=== PATIENT | female | born 1980 | race Caucasian/White ===

== ENCOUNTER 2018-04-08 06:39 | Day surgery (SDC) | payer BC ==
[~2018-04-08 06:39] MED LIST: Lidocaine 1%/Sod Bicarbonate in NS 8.4% 1 ML Syringe IDERM PRN; Sodium Chloride 0.9% 10 ML Syringe FLUSH PRN
--- NOTE | 2018-04-08 07:40 | PCM.PREANE ---
Preanesthetic Assessment - Procedure Proposed Procedure: tvh with bs - Anesthesia/Transfusion/Family Hx Anesthesia History: Prior Anesthesia Without Reaction Family History of Anesthesia Reaction: No Transfusion History: No Prior Transfusion(s) - Review of Systems General: No Symptoms Pulmonary: No Symptoms Cardiovascular: No Symptoms Gastrointestinal: Constipation Neurological: No Symptoms Other: Reports: Thyroid Problems (cysst on thyroid) - Physical Assessment NPO Status Date: 04/07/18 NPO Status Time: 21:00 Pulse: 79 O2 Sat by Pulse Oximetry: 99 Respiratory Rate: 16 Blood Pressure: 128/63 Temperature: 97.6 F Height: 5 ft 8 in Weight: 93.8 kg ASA Class: 2 Mental Status: Alert & Oriented x3 Airway Class: Mallampati = 1 Dentition: Reports: Normal Dentition Thyro-Mental Finger Breadths: 3 Mouth Opening Finger Breadths: 3 ROM/Head Extension: Full Lungs: Clear to Auscultation, Normal Respiratory Effort Cardiovascular: Regular Rate, Regular Rhythm - Lab Values: Laboratory Last Values WBC 8.42 K/mm3 (3.98-10.04) 04/07/18 17:19 RBC 4.56 M/mm3 (3.98-5.22) 04/07/18 17:19 Hgb 14.1 gm/L (11.2-15.7) 04/07/18 17:19 Hct 43.0 % (34.1-44.9) 04/07/18 17:19 MCV 94.3 fl (79.4-94.8) 04/07/18 17:19 MCH 30.9 pg (25.6-32.2) 04/07/18 17:19 MCHC 32.8 g/dl (32.2-35.5) 04/07/18 17:19 RDW Std Deviation 44.8 fL (36.4-46.3) 04/07/18 17:19 Plt Count 383 K/mm3 (182-369) H 04/07/18 17:19 MPV 10.3 fl (9.4-12.3) 04/07/18 17:19 Neut % (Auto) 62.0 % (34.0-71.1) 04/07/18 17:19 Lymph % (Auto) 28.4 % (19.3-51.7) 04/07/18 17:19 [place] % (Auto) 8.2 % (4.7-12.5) 04/07/18 17:19 Eos % (Auto) 1.1 (0.7-5.8) 04/07/18 17:19 Baso % (Auto) 0.2 % (0.1-1.2) 04/07/18 17:19 Neut # (Auto) 5.22 K/mm3 (1.56-6.13) 04/07/18 17:19 Lymph # (Auto) 2.39 K/mm3 (1.18-3.74) 04/07/18 17:19 [place] # (Auto) 0.69 K/mm3 (0.24-0.36) H 04/07/18 17:19 Eos # (Auto) 0.09 K/mm3 (0.04-0.36) 04/07/18 17:19 Baso # (Auto) 0.02 K/mm3 (0.01-0.08) 04/07/18 17:19 Creatinine 0.6 mg/dL (0.55-1.02) 04/07/18 17:19 Est Cr Clr Drug Dosing TNP 04/07/18 17:19 Estimated GFR (MDRD) > 60 mL/min (>60) 04/07/18 17:19 HCG, Qual Negative (NEGATIVE) 04/07/18 17:19 Urine Color Yellow (Yellow) 04/07/18 17:19 Urine Appearance Clear (Clear) 04/07/18 17:19 Urine pH 6.5 (5.0-8.0) 04/07/18 17:19 Ur Specific [place] 1.010 (1.005-1.030) 04/07/18 17:19 Urine Protein Negative (Negative) 04/07/18 17:19 Urine Glucose (UA) Negative (Negative) 04/07/18 17:19 Urine Ketones Negative (Negative) 04/07/18 17:19 Urine Occult Blood Negative (Negative) 04/07/18 17: Urine Nitrite Negative (Negative) 04/07/18 17:19 Urine Bilirubin Negative (Negative) 04/07/18 17:19 Urine Urobilinogen 0.2 (0.2-1.0) 04/07/18 17:19 Ur Leukocyte Esterase Negative (Negative) 04/07/18 17:19 Blood Type A POSITIVE 04/07/18 17:19 - Allergies Allergies/Adverse Reactions: Allergies Allergy/AdvReac Type Severity Reaction Status Date / Time Penicillins Allergy Rash Verified 07/14/16 10:38 - Acknowledgements Anesthesia Type Planned: General Anesthesia Pt an Appropriate Candidate for the Planned Anesthesia: Yes Alternatives and Risks of Anesthesia Discussed w Pt/Guardian: Yes Pt/Guardian Understands and Agrees with Anesthesia Plan: Yes PreAnesthesia Questionnaire HEENT History: Reports: Impaired Vision Cardiovascular History: Reports: None Respiratory History: Reports: None Gastrointestinal History: Reports: GERD (occasional) 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: Psychiatric History: Reports: Anxiety, Depression - Past Surgical History GI Surgical History: Reports: Appendectomy Female Surgical History: Reports: Breast Biopsy, D&C - SUBSTANCE USE Smoking Status *Q: Never Smoker Tobacco Use Within Last Twelve Months: No Second Hand Smoke Exposure: No Days Per Week of Alcohol Use: 0 Recreational Drug Use History: No - HOME MEDS Home Medications: Home Meds Sertraline [Zoloft] 50 mg PO DAILY 07/14/16 [History] - CURRENT (IN HOUSE) MEDS Current Meds: Current Medications Lactated Ringer's (Ringers, Lactated) 1,000 mls @ 125 mls/hr IV ASDIRECTED ALEXIS Stop: 04/08/18 23:00 Lidocaine/Sodium Bicarbonate (Buffered Lidocaine 1% In Ns 8.4%) 0.25 ml IDERM ONETIME PRN PRN Reason: Prior to IV Start Stop: 04/08/18 18:00 Sodium Chloride (Saline Flush) 10 ml FLUSH ASDIRECTED PRN PRN Reason: Keep Vein Open Stop: 04/08/18 18:00
[2018-04-08] MEDS: Lactated Ringers 1,000 ML IV SCH ×2 (07:45→10:34)
[2018-04-08] MEDS ORDERED: Lidocaine 1% 4 ML ONE (07:51)
[2018-04-08] MEDS ORDERED: Propofol 200 MG/20 ML SDV ONE (07:51)
[2018-04-08] MEDS ORDERED: Ondansetron 4 MG/2 ML SDV ONE (07:51)
[2018-04-08] MEDS ORDERED: Midazolam 1 MG/ML 2 ML SDV ONE (07:51)
[2018-04-08] MEDS ORDERED: fentaNYL 250 MCG/5 ML SDV ONE (07:52)
[2018-04-08] MEDS ORDERED: ceFAZolin 1 GM Vial ONE (07:54)
[2018-04-08] MEDS ORDERED: Sodium Chloride 0.9% 50 ML SDV ONE (08:13)
[2018-04-08] MEDS ORDERED: Lidocaine 1% with EPINEPHrine 1:100,000 20 ML MDV ONE (08:13)
[2018-04-08] MEDS ORDERED: Rocuronium 50 MG/5 ML Vial ONE (08:53)
[2018-04-08] MEDS ORDERED: HYDROmorphone 0.5 MG/0.5 ML Syringe ONE ×2 (09:07)
[2018-04-08] MEDS ORDERED: Dexamethasone 4 MG/ML 5 ML MDV ONE (09:09)
[2018-04-08] MEDS ORDERED: Ketorolac 30 MG/ML SDV ONE (09:37)
[2018-04-08] MEDS ORDERED: Ondansetron 4 MG/2 ML SDV IVPUSH PRN (09:48)
[2018-04-08] MEDS ORDERED: Acetaminophen/oxyCODONE 325-5 MG Tab PO PRN (09:48)
[2018-04-08] MEDS ORDERED: fentaNYL 100 MCG/2 ML SDV ONE (09:51)
--- NOTE | 2018-04-08 09:56 | PCM.OPNOTE ---
- General Post-Op/Procedure Note Date of Surgery/Procedure: 04/08/18 Operative Procedure(s): Total vaginal hysterectomy with bilateral salpingectomy Findings: Normal uterus, normal appearance for fallopian tubes. Ovaries functional in appearance. Pre Op Diagnosis: Menorrhagia Post-Op Diagnosis: Same Primary Surgeon: Jovon Borrego Secondary Surgeon: Donell Valenzuela Anesthesia Provider: Sabas Delgadillo Kiln Door Repairer: Nuris Irwin Reason Kiln Door Repairer Was Necessary: Retraction, assistance, patient safety, quantity of care. Role of Kiln Door Repairer: Same Fluid Replacement, Intraop: 1,700 EBL in mLs: 200 Complications: None Condition: Good Free Text/Narrative:: Surgery duration: 26 minutes Procedure: The patient was placed in supine position on the operating table. General endotracheal anesthesia was accomplished. After positioning, and adequate prep and drape, the procedure was then performed. Sterile speculum was placed in the vagina and cervix was visualized. Cervix was injected with lidocaine quarter percent with [id number] mL used. A full circumference incision was made in the cervical epithelium. The bladder was pushed well back off cervix. Posterior cul-de-sac was then entered sharply without problems. Left uterosacral was crossclamped with a Enseal vessel closure system. The left uterosacral and then the right uterosacral ligament pedicles were developed using the Enseal system. The anterior cul-de-sac was then entered without problems and the uterine vasculature, cardinal ligament and broad ligament then developed using Enseal vessel closure system. The uterus was inverted at this time and upper broad ligament fallopian tube pedicles were crossclamped with Reina clamps. Specimen was totally removed. Both these pedicles were then secured with a Reina stitch of #1 Vicryl. Left and right fallopian tube was normal in appearance.. Using Enseal vessel closure system each of the tubes was then removed and sent with the specimen. The Enseal vessel closure system was used to remove both ovaries. The patient was found to be hemostatically intact at this time. Vaginal cuff was sutured for hemostatic reasons with a running locked suture of 0 Monocryl from the 2 o' clock position to the 10 o'clock position posteriorly. Vaginal cuff was then closed from right to left side with a running locked suture of 0 Monocryl. Patient was returned to supine position and awakened from general endotracheal anesthesia. She tolerated the procedure was then left the operating room in satisfactory condition.
[2018-04-08] MEDS ORDERED: HYDROmorphone 0.5 MG/0.5 ML Syringe IVPUSH PRN (10:00)
--- NOTE | 2018-04-08 10:02 | PCM.POSTAN ---
POST ANESTHESIA ASSESSMENT - MENTAL STATUS Mental Status: Alert, Oriented - VITAL SIGNS Pulse Rate: 82 SaO2: 94 Resp Rate: 6 Blood Pressure: 119/50 Temperature: 36.1 C - CARDIOVASCULAR CV Status: Pulse Rate WNL, Blood Pressure Stable - GASTROINTESTINAL GI Status: No Symptoms - PAIN Pain Score: 1 - POST OP HYDRATION Hydration Status: Adequate & Stable - OBSERVATIONS Free Text/Narrative:: no anesthesia complications noted
[2018-04-08] MEDS: fentaNYL 100 MCG/2 ML SDV IVPUSH PRN ×3 (10:10→11:15)
[2018-04-08 13:48] VITALS: BP 126/86
== END 2018-04-08 13:45 | disposition home or self-care (01) ==
LOC: JD.SDS 06:39
PROVIDERS: ATTEND Obstetrics & Gynecology
DX: D25.9 Leiomyoma of uterus, unspecified (principal); N83.8 Other noninflammatory disorders of ovary, fallopian tube and broad ligament; J30.9 Allergic rhinitis, unspecified; E04.1 Nontoxic single thyroid nodule; F41.9 Anxiety disorder, unspecified; F32.9 Major depressive disorder, single episode, unspecified; Z88.0 Allergy status to penicillin; Z79.899 Other long term (current) drug therapy
CPT/HCPCS: 36415; 58260; 81003; 82565; 84703; 85025; 86900; 86901; A9270; J0690; J1100; J1170; J1885; J2250; J2405; J2704; J3010; J7120; 00944; J2001

== ENCOUNTER 2018-04-10 20:48 | Emergency (ER) | payer BC ==
[2018-04-10 21:00] VITALS: BP 150/89
--- NOTE | 2018-04-10 23:20 | EDM.PDOC ---
ED HPI GENERAL MEDICAL PROBLEM - General Chief Complaint: Gastrointestinal Problem Stated Complaint: BOWEL PROBLEM Time Seen by Provider: 04/10/18 23:14 Source of Information: Reports: Patient, Family () History Limitations: Reports: No Limitations - History of Present Illness INITIAL COMMENTS - FREE TEXT/NARRATIVE: The patient states that she underwent a total vaginal hysterectomy with bilateral salpingectomy per Dr. Borrego 2 days ago, 04/08/2018. She states that she was prescribed Percocet for pain relief. She now presents, stating that she has not had a bowel movement since prior to surgery. She states that she feels bloated, with abdominal cramping and rectal urgency. She has taken a stool softener, a Fleet enema, and a glycerin suppository, without relief. The patient's PCP is Tracie Marte. 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: Psychiatric History: Reports: Anxiety, Depression Endocrine/Metabolic History: Reports: Obesity/BMI 30+ - Past Surgical History HEENT Surgical History: Reports: Eye Surgery (bilateral eyelid lift 2015), Oral Surgery (wisdom teeth extraction) GI Surgical History: Reports: Appendectomy (5 years old) Female Surgical History: Reports: Hysterectomy (04/08/2018), Other (See Below) (Bilateral salpingectomy 04/08/2018) Oncologic Surgical History: Reports: Lumpectomy (right, 2005) Social & Family History - Family History Cardiac: Reports: Hypertension Endocrine/Metabolic: Reports: Diabetes, type II Oncologic: Reports: Skin - Tobacco Use Smoking Status *Q: Never Smoker - Caffeine Use Caffeine Use: Reports: None Other Caffeine Use: 3 - Alcohol Use Alcohol Use History: Yes Alcohol Use Frequency: Socially - Recreational Drug Use Recreational Drug Use: No - Living Situation & Occupation Living situation: Reports: , with Spouse, with Family (Daughter) Occupation: Employed (Works from home) ED ROS GENERAL - Review of Systems Review Of Systems: ROS reveals no pertinent complaints other than HPI. ED EXAM, GI/ABD - Physical Exam Exam: See Below Exam Limited By: No Limitations General Appearance: Alert, WD/WN, No Apparent Distress Eyes: Bilateral: Normal Appearance, EOMI Ears: Normal External Exam, Hearing Grossly Normal Nose: Normal Inspection, No Blood Throat/Mouth: Normal Inspection, Normal Lips, Normal Voice, No Airway Compromise Head: Atraumatic, Normocephalic Neck: Normal Inspection, Full Range of Motion Respiratory/Chest: No Respiratory Distress, Lungs Clear, Normal Breath Sounds, No Accessory Muscle Use Cardiovascular: Normal Peripheral Pulses, Regular Rate, Rhythm, No Gallop, No JVD, No Murmur, No Rub GI/Abdominal Exam: Normal Bowel Sounds, Soft, No Organomegaly, No Distention, No Abnormal Bruit, No Mass, Tender (Appropriate jen-incisional tenderness), Other (Obese) (Female) Exam: Deferred Rectal (Female) Exam: Deferred Back Exam: Normal Inspection, Full Range of Motion, NT Extremities: Normal Inspection, Normal Range of Motion, No Pedal Edema, Normal Capillary Refill Neurological: Alert, Oriented, Normal Cognition, No Motor/Sensory Deficits Psychiatric: Normal Affect Skin Exam: Warm, Dry, Intact, Normal Color, No Rash Course - Vital Signs Last Recorded V/S: Last Vital Signs Temp 37.0 C 04/10/18 20:55 Pulse 81 04/10/18 20:55 Resp 18 04/10/18 20:55 BP 150/89 H 04/10/18 20:55 Pulse Ox 99 04/10/18 20:55 - Re-Assessments/Exams Free Text/Narrative Re-Assessment/Exam: 04/10/18 23:19 Upright and supine abdominal radiographs appear to demonstrate a considerable amount of stool in the right and transverse colon, with a modest amount in the descending colon. No other abnormalities seen. There is a nonspecific small bowel gas pattern. Formal read per the Radiologist pending. 04/10/18 23:29 I have ordered a mineral oil enemas, to be repeated until the patient has reasonable relief. 04/11/18 00:37 Notified by Debi EVANS that the patient has received 2 mineral oil enemas. She had pretty good stool output with the first, not so much with the second one, but she now feels comfortable enough to go home. She feels that she can continue the mineral oil enemas at home. Departure - Departure Time of Disposition: 00:38 Disposition: Home, Self-Care 01 Condition: Good Clinical Impression: Constipation due to opioid therapy - Discharge Information *PRESCRIPTION DRUG MONITORING PROGRAM REVIEWED*: Not Applicable *COPY OF PRESCRIPTION DRUG MONITORING REPORT IN PATIENT RIVERA: Not Applicable Instructions: Constipation, Adult Referrals: Tracie Marte PA [Primary Care Provider] - Jovon Borrego MD [Physician] - Forms: ED Department Discharge Additional Instructions: You were seen in the emergency room for constipation following a hysterectomy on 04/08/2018, with postoperative treatment with Percocet. Workup in the ER included x-rays of your abdomen, which confirmed constipation in your ascending, transverse, and, to a lesser degree, your descending colon. You received two mineral oil enemas in the ER, with some stool output. Going forward, we recommend that you start using a bulk fiber laxative, such as Metamucil or MiraLAX, with plenty of water. You may also continue to give yourself mineral oil enemas, as needed. Follow-up with your Director [employer], Dr. Borrego, as needed. If any other problems, please do not hesitate to return to the ER.
--- NOTE | 2018-04-11 07:41 | CR ---
Abdomen: Supine and upright views of the abdomen were obtained. Comparison: No previous study. Bowel gas pattern appears normal. No abnormal calcifications or soft tissue abnormality is seen. Bony structures are unremarkable. No free air is seen. Impression: 1. No abnormality is appreciated on two-view abdominal x-ray. Diagnostic code #1
== END 2018-04-11 00:47 | disposition home or self-care (01) ==
LOC: JD.ED 20:48
DX: K59.03 Drug induced constipation (principal); T40.2X5A Adverse effect of other opioids, initial encounter; E66.9 Obesity, unspecified; Z88.0 Allergy status to penicillin; Z79.899 Other long term (current) drug therapy; Z90.710 Acquired absence of both cervix and uterus
CPT/HCPCS: 74019; 74019-26; 99283

== ENCOUNTER 2018-11-03 11:28 | Emergency (ER) | payer BC ==
[2018-11-03 11:38] VITALS: BP 149/87
[2018-11-03] MEDS ORDERED: Sodium Chloride 0.9% 10 ML Syringe FLUSH PRN (11:38)
--- NOTE | 2018-11-03 11:44 | EDM.PDOC ---
<Chaya Lockett - Last Filed: 11/03/18 13:29> ED HPI GENERAL MEDICAL PROBLEM - General Chief Complaint: Chest Pain Stated Complaint: CHEST PAIN Time Seen by Provider: 11/03/18 11:32 Source of Information: Reports: Patient History Limitations: Reports: No Limitations - History of Present Illness INITIAL COMMENTS - FREE TEXT/NARRATIVE: 38 y/o female who has been otherwise healthy presents to ER with cc sudden onset of chest pain. She states she was working at home when she developed substernal chest pain. She reports the pain as a dull pressure that radiated to back of her chest and into her jaw. She reports taking Zoloft daily, no other health issues, no sudden cardiac arrest in her family. She denies nausea, vomiting, headache. She reports nothing made is better or worse. Onset: Today Onset Date: 11/03/18 Onset Time: 09:10 Duration: Intermittent Location: Reports: Chest Quality: Reports: Ache, Dull Severity: Mild Improves with: Reports: None Worsens with: Reports: None Associated Symptoms: Reports: Other (diffulty breath, "felt labored."). 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: Psychiatric History: Reports: Anxiety, Depression Endocrine/Metabolic History: Reports: Obesity/BMI 30+ - Past Surgical History HEENT Surgical History: Reports: Eye Surgery (bilateral eyelid lift 2015), Oral Surgery (wisdom teeth extraction) GI Surgical History: Reports: Appendectomy (5 years old) Female Surgical History: Reports: Hysterectomy (04/08/2018), Other (See Below) (Bilateral salpingectomy 04/08/2018) Oncologic Surgical History: Reports: Lumpectomy (right, 2006) Social & Family History - Family History Cardiac: Reports: Hypertension Endocrine/Metabolic: Reports: Diabetes, type II Oncologic: Reports: Skin - Caffeine Use Caffeine Use: Reports: None Other Caffeine Use: 3 - Living Situation & Occupation Living situation: Reports: , with Spouse, with Family (Daughter) Occupation: Employed (Works from home) ED ROS GENERAL - Review of Systems Review Of Systems: See Below Constitutional: Reports: No Symptoms HEENT: Reports: No Symptoms Respiratory: Reports: No Symptoms, Other (labored breathing) Cardiovascular: Reports: Chest Pain Endocrine: Reports: No Symptoms GI/Abdominal: Reports: No Symptoms : Reports: No Symptoms Musculoskeletal: Reports: No Symptoms Skin: Reports: No Symptoms Neurological: Reports: No Symptoms Psychiatric: Reports: Anxiety Hematologic/Lymphatic: Reports: No Symptoms Immunologic: Reports: No Symptoms ED EXAM, GENERAL - Physical Exam Exam: See Below Exam Limited By: No Limitations General Appearance: Alert, WD/WN, No Apparent Distress Neck: Normal Inspection, Supple, Non-Tender, Full Range of Motion Respiratory/Chest: No Respiratory Distress, Lungs Clear, Normal Breath Sounds, No Accessory Muscle Use, Chest Non-Tender Cardiovascular: Normal Peripheral Pulses, Regular Rate, Rhythm, No Edema, No Gallop, No JVD, No Murmur, No Rub GI/Abdominal: Normal Bowel Sounds, Soft, Non-Tender, No Organomegaly, No Distention, No Abnormal Bruit, No Mass, Pelvis Stable Back Exam: Normal Inspection, Full Range of Motion Extremities: Normal Inspection, Normal Range of Motion, Non-Tender, No Pedal Edema, Normal Capillary Refill Neurological: Alert, Oriented, CN II-XII Intact, Normal Cognition, Normal Gait, No Motor/Sensory Deficits Psychiatric: Normal Affect, Normal Mood Skin Exam: Warm, Dry, Intact, Normal Color, No Rash Lymphatic: No Adenopathy EKG INTERPRETATION EKG Date: 11/03/18 Time: 11:40 Rhythm: NSR Rate (Beats/Min): 68 EKG Interpretation Comments: T wave inversion in lead III and flattening AVF otherwise normal ECG Course - Vital Signs Last Recorded V/S: Last Vital Signs Temp 36.9 C 11/03/18 11:34 Pulse 84 11/03/18 11:34 Resp 16 11/03/18 11:34 BP 149/87 H 11/03/18 11:34 Pulse Ox 98 11/03/18 11:34 - Orders/Labs/Meds Orders: Active Orders 24 hr Category Date Time Status EKG Documentation Completion [RC] STAT Care 11/03/18 11:37 Active Sodium Chloride 0.9% [Saline Flush] Med 11/03/18 11:38 Active 10 ml FLUSH ASDIRECTED PRN Saline Lock Insert [OM.PC] Routine Oth 11/03/18 11:38 Ordered Medication Orders Sodium Chloride (Saline Flush) 10 ml FLUSH ASDIRECTED PRN PRN Reason: Keep Vein Open Last Admin: 11/03/18 11:59 Dose: 10 ml Labs: Laboratory Tests 11/03/18 11/03/18 11/03/18 Range/Units 11:55 11:55 11:55 WBC 6.71 (3.98-10.04) K/mm3 RBC 4.20 (3.98-5.22) M/mm3 Hgb 13.0 (11.2-15.7) gm/L Hct 39.4 (34.1-44.9) % MCV 93.8 (79.4-94.8) fl MCH 31.0 (25.6-32.2) pg MCHC 33.0 (32.2-35.5) g/dl RDW Std Deviation 46.1 (36.4-46.3) fL Plt Count 325 (182-369) K/mm3 MPV 9.9 (9.4-12.3) fl Neut % (Auto) 62.4 (34.0-71.1) % Lymph % (Auto) 27.9 (19.3-51.7) % [place] % (Auto) 7.7 (4.7-12.5) % Eos % (Auto) 1.3 (0.7-5.8) Baso % (Auto) 0.6 (0.1-1.2) % Neut # (Auto) 4.18 (1.56-6.13) K/mm3 Lymph # (Auto) 1.87 (1.18-3.74) K/mm3 [place] # (Auto) 0.52 H (0.24-0.36) K/mm3 Eos # (Auto) 0.09 (0.04-0.36) K/mm3 Baso # (Auto) 0.04 (0.01-0.08) K/mm3 D-Dimer, Quantitative 0.29 (0.19-0.50) mg/L Sodium 140 (136-145) mEq/L Potassium 3.7 (3.5-5.1) mEq/L Chloride 104 (98-107) mEq/L Carbon Dioxide 26 (21-32) mEq/L Anion Gap 13.7 (5-15) BUN 11 (7-18) mg/dL Creatinine 0.6 (0.55-1.02) mg/dL Est Cr Clr Drug Dosing 125.73 mL/min Estimated GFR (MDRD) > 60 (>60) mL/min BUN/Creatinine Ratio 18.3 H (14-18) Glucose 101 (74-106) mg/dL Calcium 9.0 (8.5-10.1) mg/dL Total Bilirubin 0.3 (0.2-1.0) mg/dL AST 18 (15-37) U/L ALT 20 (14-59) U/L Alkaline Phosphatase 70 (46-116) U/L Troponin I < 0.017 (0.00-0.056) ng/mL C-Reactive Protein < 0.2 (<1.0) mg/dL Total Protein 7.0 (6.4-8.2) g/dl Albumin 3.9 (3.4-5.0) g/dl Globulin 3.1 gm/dL Albumin/Globulin Ratio 1.3 (1-2) Lipase 76 (73-393) U/L Meds: Medications Generic Name Dose Route Start Last Admin Trade Name Freq PRN Reason Stop Dose Admin Sodium Chloride 10 ml 11/03/18 11:38 11/03/18 11:59 Saline Flush FLUSH 10 ml ASDIRECTED PRN Administration Keep Vein Open - Re-Assessments/Exams Free Text/Narrative Re-Assessment/Exam: 11/03/18 12:29 WBC 6.71 RBC 4.2 H7H 13.0/39.4 Na+ 140 K+ 3.7 chl 104 co2 26 bun 11 creatine 0.6 troponin 0.017 crp 0.2 Lipase 76 ast 18 alt 20. Her chest x-ray revealed no acute findings. 38 y/o female presents to ER with cc sudden onset chest pain this am. Her EKG revealed NSR, her labs were unremarkable. Her chest x-ray revealed no acute findings. I feel her chest pain could be due to stress or anxiety. GERD can not be excluded. I will discharge home with instructions to follow up with her PCP. I instructed her to return to the ER for any new or acute worsening symptoms. She verbalized understanding and is comfortable with plan for discharge. She is stable at time of discharge. 11/03/18 13:29 Her D-dimer is negative 0.29. I will proceed with discharge. Departure - Departure Time of Disposition: 13:29 Disposition: Home, Self-Care 01 Condition: Good Clinical Impression: Atypical chest pain, Gastroesophageal reflux disease Instructions: Indigestion, [id number], Food Choices for Gastroesophageal Reflux Disease, Adult, [id number], Esophagitis, Nonspecific Chest Pain, Easy- to-Read Referrals: Sergio Marte PA [Primary Care Provider] - Forms: ED Department Discharge Additional Instructions: You have been diagnosis with atypical chest pain. Your EKG was normal sinus rhythm, your blood studies were unremarkable. You pain is not related to your heart. Different things that can cause this pain include but are not limited to hiatal hernia, GERD, and gallbladder. I recommend you eat a low fat diet and followup with your PCP. Return to the ER for any new or acute worsening symptoms. <Segundo Rousseau - Last Filed: 11/03/18 13:43> Course - Radiology Interpretation Free Text/Narrative:: 38-year-old female presents to the ED with acute onset of lower retrosternal chest pain which was fairly sharp and stabbing and radiated through to her back mid back. This occurred while she was seated at her computer station or desk at home this morning. No associated burping or belching. She really didn't have any heartburn symptoms. She doesn't usually suffer from GERD and has used like Rolaids once every year. Gait early last evening and went to bed with an empty stomach. She states the pain from the time it came on an intensified and then dissipated was about 45 minutes. Pain remains gone at this time. ECG reviewed and shows no signs of acute ischemia. I agree with investigations ordered by nurse practitioner Chaya Lockett. History suggests strongly that this is likely esophageal spasm and the patient likely has occult reflux disease. Of note she did drink coffee this morning and it didn't bother her at all. - Re-Assessments/Exams Free Text/Narrative Re-Assessment/Exam: 11/03/18 13:42 White count is 6.71. Automated differential 62% neutrophils . He was 13.0 with hematocrit 39.4. Platelet count is 325,000. D-dimer is normal at 0.29. Sodium 140 with potassium of 3.7. Chloride 104 with a bicarbonate 26. And a gap is 13.7. BUN is 11 with a creatinine of 0.6. GFR is greater than 60. BUN/ creatinine ratio slightly elevated 18.3. Glucose is 101. Calcium is 9.0. Bilirubin is 0.3. AST is 18 ALT is 20. Alk phosphatase is 70. Troponin I is less than 0.017. C-reactive protein is less than 0.2. Total protein 7.0 with an albumin fraction of 3.9. Case discussed with SARATH Lockett and the patient will be discharged to home. No specific cause of her transient chest pain identified although is most likely esophageal spasm. Last x-ray was reviewed and is within normal limits as well.
--- NOTE | 2018-11-03 12:33 | CR ---
Chest: Two views of the chest were obtained. Comparison: Prior chest x-ray of 09/03/17. Heart size slightly generous. Lungs are clear. Bony structures are unremarkable. Impression: 1. Heart size is slightly generous which appears as an interval change from previous exam. Echocardiogram could be obtained to further evaluate. 2. Nothing acute is otherwise seen. Diagnostic code #3
== END 2018-11-03 13:40 | disposition home or self-care (01) ==
LOC: JD.ED 11:28
DX: K21.9 Gastro-esophageal reflux disease without esophagitis (principal); R07.89 Other chest pain; F41.9 Anxiety disorder, unspecified; F32.9 Major depressive disorder, single episode, unspecified; Z79.899 Other long term (current) drug therapy; Z88.0 Allergy status to penicillin
CPT/HCPCS: 36415; 71046; 71046-26; 80053; 83690; 84484; 85025; 85379; 86140; 93005; 93010; 99285; 99285-25

== ENCOUNTER 2024-09-05 07:29 | Day surgery (SDC) | payer BC ==
[~2024-09-05 07:29] MED LIST changes: -Lidocaine 1%/Sod Bicarbonate in NS 8.4% 1 ML Syringe IDERM PRN
[2024-09-05] MEDS: Lactated Ringers 1,000 ML IV SCH (08:05)
[2024-09-05] MEDS ORDERED: Lidocaine 2% 5 ML SDV ONE (08:30)
[2024-09-05] MEDS ORDERED: Propofol 200 MG/20 ML SDV ONE (08:31)
[2024-09-05] MEDS ORDERED: Sodium Chloride 0.9% 10 ML Syringe FLUSH SCH (09:00)
[2024-09-05 09:37] VITALS: BP 113/63; PULSE 63
== END 2024-09-05 09:44 | disposition home or self-care (01) ==
LOC: JD.SDS 07:29
PROVIDERS: ATTEND Surgery
DX: K62.89 Other specified diseases of anus and rectum (principal); K64.4 Residual hemorrhoidal skin tags; K60.2 Anal fissure, unspecified; I10 Essential (primary) hypertension; K21.9 Gastro-esophageal reflux disease without esophagitis; F32.A Depression, unspecified; E78.00 Pure hypercholesterolemia, unspecified; G47.33 Obstructive sleep apnea (adult) (pediatric); Z79.899 Other long term (current) drug therapy; Z88.0 Allergy status to penicillin
CPT/HCPCS: 45380; J2704; J7120; 00811; J3490